=== PATIENT | male | born 1950 | race Caucasian/White ===

== ENCOUNTER → 2017-01-09 | Outpatient (CLI) | payer BC ==
[2017-01-09 17:54] LABS: ALT/SGPT 33 U/L (12-78); AST/SGOT 16 U/L (15-37); BLOOD UREA NITROGEN 17 mg/dl (7-18); CALCIUM 8.8 mg/dl (8.5-10.1); CARBON DIOXIDE 25 mmol/L (21-32); CHLORIDE 108 mmol/L (98-107); CREATININE 0.88 mg/dl (0.60-1.40); GLUCOSE 90 mg/dl (70-99); POTASSIUM 4.2 mmol/L (3.5-5.1); SODIUM 141 mmol/L (136-145)
[2017-01-09 17:57] LABS: ALB/GLOB RATIO 1.1 (0.9-2); ALKALINE PHOSPHATASE 72 U/L (45-117); CHOLESTEROL/HDL RATIO 4.8
== END | disposition home or self-care (01) ==
LOC: C.LABPVFM 11:46
PROVIDERS: ATTEND Family Medicine
DX: E78.5 Hyperlipidemia, unspecified (principal)

== ENCOUNTER → 2017-06-19 | Outpatient (CLI) | payer BC ==
[2017-06-19 13:01] LABS: ALBUMIN 3.3 gm/dl (3.4-5.0); ALT/SGPT 31 U/L (12-78); BLOOD UREA NITROGEN 19 mg/dl (7-18); CALCIUM 8.4 mg/dl (8.5-10.1); CARBON DIOXIDE 28 mmol/L (21-32); CHOLESTEROL 159 mg/dl (0-200); CREATININE 0.88 mg/dl (0.60-1.40); GLUCOSE 94 mg/dl (70-99); POTASSIUM 3.4 mmol/L (3.5-5.1); SODIUM 141 mmol/L (136-145)
[2017-06-19 13:06] LABS: ALKALINE PHOSPHATASE 57 U/L (45-117); AST/SGOT 13 U/L (15-37); LDL CHOLESTEROL CALCULATED 81 mg/dl; TOTAL PROTEIN 6.2 gm/dl (6.4-8.2)
== END | disposition home or self-care (01) ==
LOC: C.LABPVFM 08:00
PROVIDERS: ATTEND Family Medicine
DX: Z00.00 Encounter for general adult medical examination without abnormal findings (principal)

== ENCOUNTER 2025-02-26 12:27 | Inpatient (IN) ==
--- NOTE | 2025-02-26 14:15 | Emergency Department Note ---
Impression & Plan AMS (altered mental status), Acute paranoia ED Provider Note HISTORY OF PRESENT ILLNESS: Patient is a 74-year-old male presenting with abnormal behavior. provides entirety of history, as patient refuses to talk to examiner. reports that the patient has been having "bizarre thoughts" for the last 2 years. She states that in the last 2 weeks the patient has significantly declined in his mental status. Reports that the patient "only paces around all day." She states that he is having visual hallucinations of the neighbor coming to their house when the neighbor does not. She is unsure if he is having auditory hallucinations and the patient will not answer questions. They were seen at the PCP today for a regular follow-up appointment and given the patient's presenting symptoms, they were referred to the emergency department. reports that "PCP sent us for an MRI of his brain." No reported physical symptoms such as chest pain, shortness of breath, nausea or vomiting. No reported headaches or changes in vision. Patient has a history of anxiety and depression is on Zoloft. reports Zoloft was started about 3 to 4 weeks ago. He was initially on 25 mg and was increased to 50 mg about 2 weeks ago. No other changes to medications. reports that the patient was unable to dress himself today. She reports "he just seems like he is comatose." She reports that the patient has intrusive thoughts that the "neighbors are talking about us and upset with us." reports that last night the patient was "telling me goodbye because he states that he would not be here in the morning." He had recurrent intrusive thoughts that someone was going to break into the house to kill them. She states that the patient thinks that "the klan is going to kill me." denies any particular triggers starting 2 to 3 weeks ago. She reports that patient follows with a mental health provider and was scheduled to see them on Monday, but given patient's intrusive thoughts and bizarre behaviors, she has significant concern about his safety at home. Patient denies any suicidal ideation. He has never been admitted to an inpatient psychiatric facility in the past. Reportedly does have access to guns at the home. ROS: as above PHYSICAL EXAM: Constitutional: Patient appears in no acute distress. HENT: Head: Normocephalic and atraumatic. Eyes: EOMI, PERRL Mouth/Throat: Mucous membranes moist. Neck: Trachea midline. Neck supple. Cardiovascular: RRR, No murmurs, rubs or gallops. Intact distal pulses. Pulmonary/Chest: No respiratory distress. Breath sounds clear and equal bilaterally. No wheezes or rales. Abdominal: Abdomen soft, no tenderness, rebound or guarding. Musculoskeletal: No edema, tenderness or deformity noted. Skin: Warm and dry. No rash, erythema, pallor or cyanosis Psychiatric: Appropriate mood and affect for situation. Neurological: Alert. CN II-XII grossly intact, moving all extremities equally and fully. MDM: - Vitals signs stable. - History obtained via patient's , given patient will not answer any question. History as above. - Chronic conditions affecting care: anxiety/depression; HTN; HLD; LBBB - Differential diagnoses include, but are not limited to: Intracranial hemorrhage; CVA; intracranial mass; UTI; electrolyte abnormality; medication side effect; psychosis - External medical records reviewed. Primary care visit note from earlier today was reviewed. Patient was referred to the emergency department due to "having thoughts of hurting himself." - EKG image interpreted by myself showed normal sinus rhythm. Rate 67 bpm. QT 474. No acute ischemic changes. Noted to have left bundle branch block, which has been noted on previous EKGs. - Laboratory workup interpreted by myself showed normal WBC; normal PT/INR; stable electrolytes; normal troponin; negative alcohol; normal TSH - UA negative for infection. Noted to have significant amounts of ketones but no glucosuria - CT head wo contrast negative for acute pathology - UDS negative - Unclear medical etiology for patient's symptoms at this time. However, patient has had a significant decline in the last 14 days and expresses concern about his safety at home. Will admit to the hospital service for further medical evaluation and potential psychiatric consultation in the inpatient setting. - Discussion was had with case making machine operator about patient's case and need for admission - Hospitalist, Dr. Yoder, consulted for admission - Patient admitted to [facility] hospitalist service for further evaluation and management. ASSESSMENT AND PLAN: Diagnosis: Altered mental status; acute paranoia Plan: Admit Past Med/Surg History Problem List (Updated 02/26/25 @ 17:24 by Clementine Long MD) Acute paranoia (Acute) AMS (altered mental status) (Acute) Weight loss Bizarre thoughts Dyspnea on exertion LBBB (left bundle branch block) BELLO (obstructive sleep apnea) Insomnia Fatigue Headache Depression BPH (benign prostatic hyperplasia) (Chronic) Lichen simplex chronicus Hypertension (Chronic) Hyperlipidemia (Chronic) GERD without esophagitis (Chronic) Eczema BPPV (benign paroxysmal positional vertigo) Medical History Left flank pain Atypical chest pain Chest pain Nasal sinus congestion Ventral hernia Hx of colonic polyps Stenosis, cervical spine Eczema Seasonal allergies History of COVID-19 (2021) Arrhythmia BELLO (obstructive sleep apnea) Tinnitus Diverticulosis of colon Surgical History Hx of colonoscopy with polypectomy History of tonsillectomy History of hernia surgery Family History Father Lung cancer Hypertension Heart disease Diabetes Mother Dementia Breast cancer Lung cancer Grandmother Heart disease Grandfather Colorectal cancer Brother Prostate cancer Denies family history of Ovarian cancer Clotting disorder Myocardial infarction Social History Smoking Status: Never smoker Second Hand Exposure: Yes (As a child. ); Do You Dip or Chew Tobacco: No; Hx Alcohol Use: Yes Alcohol type: beer and hard liquor Alcohol Intake Frequency: 2-4 x/Month Hx Substance Use: No Preferred Language: Slovak Communication Ability: Effective Visual Impairment: Limited Hearing Ability: Normal Heel Scourer Required: No Beliefs That Will Affect Care: None marital status: Current Living Situation: Spouse current occupational status: retired How many Children do You have: 2 Feels Safe at Home: Yes Childhood Exposure to Second-Hand Smoke: Yes (Parents smoked. ) Diet: regular caffeine: Yes (coffee) during the past year weight has: remained stable Dental Care, Regularly: Yes Physical Activity Frequency: 3-4 Times per Week Seatbelt Use: always Sunscreen Use: Yes Do you think of yourself as: straight/heterosexual Sexual Activity: has been sexually active within the last 12 months Gender Identity: Male Assistive Devices: CPAP and Glasses Allergies Allergies Allergy/AdvReac Type Severity Reaction Status Date / Time No Known Drug Allergies Allergy Verified 02/26/25 08:53 Home Meds Home Medications Medication Instructions Recorded Confirmed sertraline 50 mg tablet (Zoloft) 50 mg PO DAILY 02/26/25 02/26/25 Previous Rx's Medication Instructions Recorded Auto Titrating CPAP See Rx Instructions .Route 03/11/21 .COMPLEX #1 ea fluticasone propionate 50 2 spray intranasal DAILY #16 grams 02/09/24 mcg/actuation nasal spray,suspension losartan 100 mg tablet 100 mg PO QAM #90 tabs 02/09/24 triamcinolone acetonide 0.1 % 1 applic topical TID PRN itching 02/09/24 topical ointment #30 grams atorvastatin 20 mg tablet 20 mg PO QPM #90 tabs 12/12/24 metoprolol succinate 50 mg 50 mg PO QAM #90 tabs 12/12/24 tablet,extended release 24 hr omeprazole 20 mg capsule,delayed 20 mg PO DAILY PRN gerd #90 caps 12/12/24 release tamsulosin 0.4 mg capsule 0.4 mg PO BID #180 caps 12/12/24 Results & Data (ED) Vital Signs Vital Signs - 24 hr 02/26/25 12:34 02/26/25 15:16 Temperature 36.4 C L Temperature Source Temporal Artery Scan Pulse Rate 64 Pulse Rate [Finger] 59 L Respiratory Rate 20 18 Respiratory Effort / Characteristics Non-Labored Spontaneous Respiratory Depth Normal Blood Pressure 117/62 Blood Pressure [Right Arm] 154/76 H Blood Pressure Mean 80 Blood Pressure Mean [Right Arm] 102 Pulse Oximetry 97 97 Oxygen Delivery Method Room Air Room Air Sepsis Recent Fever Within 48 Hours No Sepsis New/Unexplained Change in Mental Status N/A Sepsis Action Taken by Nursing No Action Required Laboratory Data 02/26/25 13:46 02/26/25 13:46 Lab Results 02/26/25 02/26/25 02/26/25 Range/Units 13:46 14:02 14:33 WBC 7.39 (4.8-10.8) K/ul RBC 4.15 L (4.70-6.10) M/uL Hgb 13.6 L (14.0-18.0) g/dL POC Hgb 12.6 L (14.0-18.0) g/dl Hct 38.0 L (42.0-52.0) % POC Hct 37 L (42-52) % MCV 91.6 (80.0-100.0) fL MCH 32.8 (25.0-34.0) pg MCHC 35.8 (32.0-36.0) g/dL RDW Std Deviation 42.7 (36.4-46.3) fL RDW Coeff of Esther 12.7 (11.5-14.5) % Plt Count 246 (130-400) K/uL MPV 9.9 (9.4-12.4) fL Immature Gran % (Auto) 0.4 % Neut % (Auto) 75.5 % Lymph % (Auto) 14.6 % Leslie % (Auto) 8.5 % Eos % (Auto) 0.5 % Baso % (Auto) 0.5 % Neut # (Auto) 5.57 (1.40-6.50) K/uL Lymph # (Auto) 1.08 L (1.20-3.40) K/uL Leslie # (Auto) 0.63 H (0.11-0.59) K/uL Eos # (Auto) 0.04 (0.00-0.50) K/uL Baso # (Auto) 0.04 (0.00-0.20) K/uL Immature Gran # (Auto) 0.03 (0.01-0.20) K/uL PT Cancelled 10.9 INR Cancelled 1.0 APTT Cancelled 27 PTT Ratio Cancelled 1.0 POC Sodium 143 (135-144) mmol/L Sodium 143 (136-145) mmol/L POC Potassium 3.9 (3.3-5.0) mmol/L Potassium 3.9 (3.5-5.1) mmol/L POC Chloride 105 (101-112) mmol/L Chloride 107 (98-107) mmol/L Carbon Dioxide 28 (21-32) mmol/L POC Total CO2 26 (24-31) mmol/L Anion Gap 8 (3-11) POC Anion Gap 17.0 (16-25) mmol/L POC BUN 29 H (7-18) mg/dl BUN 28 H (6-23) mg/dl Creatinine 0.71 (0.6-1.4) mg/dl POC Creatinine 0.8 (0.6-1.3) mg/dl Est Cr Clr Drug Dosing 94.0 ml/min eGFR 97.48 BUN/Creatinine Ratio 39.4 H (10-20) Glucose 125 H (70-99(Fasting)) mg/dl POC Glucose (other) 121 H (70-99) mg/dl Calcium 8.8 (8.6-10.3) mg/dl POC Ioniz Calcium Stephon 1.14 (1.12-1.32) mmol/l Total Bilirubin 0.7 (0.2-1.0) mg/dl AST 29 (13-39) U/L ALT 32 (7-52) U/L Alkaline Phosphatase 53 (34-104) U/L Troponin I High Sens 9.6 (0-20) pg/ml Total Protein 5.9 L (6.0-8.3) gm/dl Albumin 3.5 (3.4-5.0) gm/dl Globulin 2.4 L (2.5-4.0) gm/dl Albumin/Globulin Ratio 1.5 (0.9-2) TSH 1.231 (0.300-4.500) uIu/ml Urine Color Urine Appearance (Clear) Urine pH (4.5-7.5) Ur Specific Elton (1.000-1.030) Urine Protein (Negative) Urine Glucose (UA) (Negative) Urine Ketones (Negative) Urine Blood (Negative) Urine Nitrite (Negative) Urine Bilirubin (Negative) Urine Urobilinogen (Negative) Ur Leukocyte Esterase (Negative) Urine WBC (Auto) (0-5) /hpf Urine RBC (Auto) (0-2) /hpf U Hyaline Cast (Auto) (0-2) /lpf U Epithel Cells (Auto) (0-2) /hpf Urine Bacteria (Auto) (None Seen) Urine Comment Urine Opiates Screen (Neg) Ur Methadone, Qual (Neg) Urine Fentanyl Screen (Neg) Urine Barbiturates (Neg) Ur Phencyclidine (PCP) (Neg) U Amphetamin/Meth Scrn (Neg) MDMA (Ecstasy) Screen (Neg) U Benzodiazepines Scrn (Neg) Ur Cocaine Metabolite (Neg) U Marijuana (THC) Screen (Neg) Ethyl Alcohol mg/dL < 10.0 (<10.0) mg/dl 02/26/25 Range/Units 15:20 WBC (4.8-10.8) K/ul RBC (4.70-6.10) M/uL Hgb (14.0-18.0) g/dL POC Hgb (14.0-18.0) g/dl Hct (42.0-52.0) % POC Hct (42-52) % MCV (80.0-100.0) fL MCH (25.0-34.0) pg MCHC (32.0-36.0) g/dL RDW Std Deviation (36.4-46.3) fL RDW Coeff of Esther (11.5-14.5) % Plt Count (130-400) K/uL MPV (9.4-12.4) fL Immature Gran % (Auto) % Neut % (Auto) % Lymph % (Auto) % Leslie % (Auto) % Eos % (Auto) % Baso % (Auto) % Neut # (Auto) (1.40-6.50) K/uL Lymph # (Auto) (1.20-3.40) K/uL Leslie # (Auto) (0.11-0.59) K/uL Eos # (Auto) (0.00-0.50) K/uL Baso # (Auto) (0.00-0.20) K/uL Immature Gran # (Auto) (0.01-0.20) K/uL PT INR APTT PTT Ratio POC Sodium (135-144) mmol/L Sodium (136-145) mmol/L POC Potassium (3.3-5.0) mmol/L Potassium (3.5-5.1) mmol/L POC Chloride (101-112) mmol/L Chloride (98-107) mmol/L Carbon Dioxide (21-32) mmol/L POC Total CO2 (24-31) mmol/L Anion Gap (3-11) POC Anion Gap (16-25) mmol/L POC BUN (7-18) mg/dl BUN (6-23) mg/dl Creatinine (0.6-1.4) mg/dl POC Creatinine (0.6-1.3) mg/dl Est Cr Clr Drug Dosing ml/min eGFR BUN/Creatinine Ratio (10-20) Glucose (70-99(Fasting)) mg/dl POC Glucose (other) (70-99) mg/dl Calcium (8.6-10.3) mg/dl POC Ioniz Calcium Stephon (1.12-1.32) mmol/l Total Bilirubin (0.2-1.0) mg/dl AST (13-39) U/L ALT (7-52) U/L Alkaline Phosphatase (34-104) U/L Troponin I High Sens (0-20) pg/ml Total Protein (6.0-8.3) gm/dl Albumin (3.4-5.0) gm/dl Globulin (2.5-4.0) gm/dl Albumin/Globulin Ratio (0.9-2) TSH (0.300-4.500) uIu/ml Urine Color Yellow Urine Appearance Clear (Clear) Urine pH 6.0 (4.5-7.5) Ur Specific Elton 1.029 (1.000-1.030) Urine Protein Trace H (Negative) Urine Glucose (UA) Negative (Negative) Urine Ketones 3+ H (Negative) Urine Blood Negative (Negative) Urine Nitrite Negative (Negative) Urine Bilirubin Negative (Negative) Urine Urobilinogen Negative (Negative) Ur Leukocyte Esterase Negative (Negative) Urine WBC (Auto) 0-5 (0-5) /hpf Urine RBC (Auto) 0-2 (0-2) /hpf U Hyaline Cast (Auto) 0-2 (0-2) /lpf U Epithel Cells (Auto) 0-2 (0-2) /hpf Urine Bacteria (Auto) None Seen (None Seen) Urine Comment Urine Opiates Screen Neg (Neg) Ur Methadone, Qual Neg (Neg) Urine Fentanyl Screen Neg (Neg) Urine Barbiturates Neg (Neg) Ur Phencyclidine (PCP) Neg (Neg) U Amphetamin/Meth Scrn Neg (Neg) MDMA (Ecstasy) Screen Neg (Neg) U Benzodiazepines Scrn Neg (Neg) Ur Cocaine Metabolite Neg (Neg) U Marijuana (THC) Screen Neg (Neg) Ethyl Alcohol mg/dL (<10.0) mg/dl Imaging Data Radiologist's Impression: Head CT 02/26/25 13:57 CT SCAN OF THE BRAIN WITHOUT IV CONTRAST CLINICAL HISTORY: Change in mental status. Paranoia. Delusions. COMPARISON STUDY: MRI of the brain dated 01/01/2019. TECHNIQUE: Unenhanced CT scan of the brain is performed from the vertex to the skull base. Images are reviewed in the axial, sagittal, coronal planes. A dose lowering technique was utilized adhering to the principles of ALARA. CT DOSE: 663.26 mGy.cm FINDINGS: Brain parenchyma: There is age-related involutional change noting minimal microangiopathic disease. There is no hemorrhage, mass effect, or evidence of acute territorial ischemia by CT criteria. [place]-white matter differentiation is preserved. No extra-axial fluid collection is seen. Ventricles, sulci, cisterns: Prominent secondary to involutional change. Intracranial vasculature: There is atherosclerotic calcification of the cavernous carotid arteries. Calvarium: Unremarkable. Sinuses and mastoids: There is mild mucosal thickening within the left maxillary antrum. Trace mucosal thickening is seen in the left frontal sinus and the ethmoid sinuses. The mastoid air cells are well pneumatized. Orbits: The bony orbits are grossly intact. IMPRESSION: There is no hemorrhage, mass effect, or evidence of acute territorial ischemia by CT criteria. ACT 112: Negative or not required by law. Electronically signed by: Reece Basilio M.D. 02/26/2025 2:25 PM Discharge Plan Visit Data Chief Complaint: Altered Mental Status Stated Complaint: MH EVAL AND DOC WANTS AND MRI ED Provider: Clementine Long Discharge Problem: AMS (altered mental status), Acute paranoia Patient Disposition: Admitted As Inpatient Condition: Fair Forms Stand Alone Forms: My [facility] Prescriptions Prescriptions: No Action metoprolol succinate 50 mg tablet extended release 24 hr 50 mg PO QAM Qty: 90 3RF atorvastatin 20 mg tablet 20 mg PO QPM Qty: 90 3RF tamsulosin 0.4 mg capsule 0.4 mg PO BID Qty: 180 3RF omeprazole 20 mg capsule,delayed release(DR/EC) 20 mg PO DAILY PRN (Reason: gerd) Qty: 90 3RF Auto Titrating CPAP Misc See Rx Instructions .ROUTE .COMPLEX Qty: 1 0RF Rx Instructions: 5 to 15 cm of water, mask fit patient comfort, heated humidification, compliance download capabilities, DME of patient choice; sertraline [Zoloft] 50 mg tablet 50 mg PO DAILY fluticasone propionate 50 mcg/actuation spray,suspension 2 spray intranasal DAILY Qty: 16 11RF losartan 100 mg tablet 100 mg PO QAM Qty: 90 3RF triamcinolone acetonide 0.1 % ointment 1 applic topical TID PRN (Reason: itching) Qty: 30 5RF Referrals Referrals: Eliseo Ordoñez DO [Primary Care Provider] -
[2025-02-26 14:17] LABS: Hematocrit (blood only) 38.0 % (42.0-52.0); Hemoglobin 13.6 g/dL (14.0-18.0); Immature Granulocytes # (auto) 0.03 K/uL (0.01-0.20); Immature Granulocytes % (auto) 0.4 %; Mean Corpuscular Hemoglobin 32.8 pg (25.0-34.0); Mean Corpuscular Volume 91.6 fL (80.0-100.0); Platelet Count 246 K/uL (130-400); RDW Standard Deviation 42.7 fL (36.4-46.3); Red Blood Count 4.15 M/uL (4.70-6.10); White Blood Count 7.39 K/ul (4.8-10.8)
[2025-02-26 14:22] LABS: Albumin Level 3.5 gm/dl (3.4-5.0); Anion Gap 8.0 (3-11); Bilirubin,Total 0.7 mg/dl (0.2-1.0); Calcium 8.8 mg/dl (8.6-10.3); Carbon Dioxide 28.0 mmol/L (21-32); Chloride 107.0 mmol/L (98-107); Potassium 3.9 mmol/L (3.5-5.1); Sodium 143.0 mmol/L (136-145)
--- NOTE | 2025-02-26 14:27 | CT Scan Report ---
CT SCAN OF THE BRAIN WITHOUT IV CONTRAST CLINICAL HISTORY: Change in mental status. Paranoia. Delusions. COMPARISON STUDY: MRI of the brain dated 01/01/2019. TECHNIQUE: Unenhanced CT scan of the brain is performed from the vertex to the skull base. Images are reviewed in the axial, sagittal, coronal planes. A dose lowering technique was utilized adhering to the principles of ALARA. CT DOSE: 663.26 mGy.cm FINDINGS: Brain parenchyma: There is age-related involutional change noting minimal microangiopathic disease. T here is no hemorrhage, mass effect, or evidence of acute territorial ischemia by CT criteria. [place]-wh ite matter differentiation is preserved. No extra-axial fluid collection is seen. Ventricles, sulci, cisterns: Prominent secondary to involutional change. Intracranial vasculature: There is atherosclerotic calcification of the cavernous carotid arteries. Calvarium: Unremarkable. Sinuses and mastoids: There is mild mucosal thickening within the left maxillary antrum. Trace mucosa l thickening is seen in the left frontal sinus and the ethmoid sinuses. The mastoid air cells are wel l pneumatized. Orbits: The bony orbits are grossly intact. IMPRESSION: There is no hemorrhage, mass effect, or evidence of acute territorial ischemia by CT cynthia [place]. ACT 112: Negative or not required by law. Electronically signed by: Reece Basilio M.D. 02/26/2025 2:25 PM
[2025-02-26 14:28] LABS: Alanine Aminotransferase 32.0 U/L (7-52); Albumin Globulin Ratio 1.5 (0.9-2); Alkaline Phosphatase 53.0 U/L (34-104); Blood Urea Nitrogen 28.0 mg/dl (6-23); Creatinine Clr Calc Pharmacy 94.0 ml/min; Globulin 2.4 gm/dl (2.5-4.0); Glucose 125.0 mg/dl (70-99(Fasting)); Total Protein 5.9 gm/dl (6.0-8.3)
[2025-02-26 14:56] LABS: Thyroid Stimulating Hormone 1.231 uIu/ml (0.300-4.500)
[2025-02-26 15:18] LABS: INR 1.0 (0.9-1.1); Partial Thromboplastin Time 27 Seconds (21-31); Prothrombin Time 10.9 Seconds (9.0-12.0)
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
[2025-02-26 16:06] LABS: Appearance Urine Clear (Clear); Bacteria Urine Automated None Seen (None Seen); Cast Urine Automated 0-2 /lpf (0-2); Epithelial Cell Urine Auto 0-2 /hpf (0-2); Glucose Urine UA Negative (Negative); RBC Urine Automated 0-2 /hpf (0-2); WBC Urine Automated 0-5 /hpf (0-5)
[2025-02-26 16:58] LABS: Amphetamines+Metham, Urine Neg (Neg); MDMA (Ecstacy), Urine Neg (Neg); Marijuana, Urine Neg (Neg)
--- NOTE | 2025-02-26 17:32 | XRay Report ---
INDICATION: Abdominal pain TECHNIQUE: Portable supine view radiograph of the abdomen was obtained. COMPARISON: CT abdomen and pelvis February 08, 2025 FINDINGS: The bowel gas pattern is nonobstructive. Moderate quantity of desiccated stool is seen over the colon and over the rectal vault. Evaluation for free air is limited due to supine technique. Organ silhouettes are normal in shape and contour. There is no gross mass effect. IMPRESSION: Moderate quantity of desiccated stool is seen over the colon and over the rectal vault. Electronically signed by Mihir Gracia 02-26-2025 5:27 PM
[2025-02-26] MEDS ORDERED: NON-FORMULARY MEDICATION (Auto Titrating Cpap misc) SCH (21:49)
[2025-02-26] MEDS: TAMSULOSIN HCL 0.4 MG CAP PO SCH (23:04)
[2025-02-26] MEDS: ATORVASTATIN 20 MG TAB PO SCH (23:05)
[2025-02-27] MEDS: MELATONIN 3 MG TAB PO PRN (00:19)
--- NOTE | 2025-02-27 05:56 | Electrocardiogram Report ---
Test Reason : Blood Pressure : */* mmHG Vent. Rate : 67 BPM Atrial Rate : 67 BPM P-R Int : 142 ms QRS Dur : 154 ms QT Int : 474 ms P-R-T Axes : 73 12 104 degrees QTcB Int : 500 ms Normal sinus rhythm Left bundle branch block Abnormal ECG No previous ECGs available Confirmed by Munir Fox ([id number]) on 02/27/2025 5:55:47 AM Referred By: Confirmed By: Munir Fox
--- NOTE | 2025-02-27 07:18 | Hospitalist Progress Note ---
Date of Service February 27, 2025 Assessment & Plan (1) Hallucinations in several modalities at once: (2) Acute paranoia: (3) Homicidal ideation: (4) Suicidal ideation: (5) BPH with obstruction/lower urinary tract symptoms: Plan In summary this is a 74-year-old male who presents with acutely worsened severe paranoia associated with hallucinations, homicidal and suicidal ideation. #Severe paranoia with hallucinations // Suicidal and Homicidal ideation There is no acute medical condition that would explain the patient's worsening paranoia; the patient was recently started on Zoloft by an outpatient psychiatrist/BARREL CUTTER, which may be exacerbating patient's symptoms; nonpsychiatric causes of the patient's worsened condition have been thoroughly ruled out by the emergency department provider's evaluation as well as my additional assessment; psychiatry has been consulted for recommendations Psychiatry consulted; recommend MRI brain without contrast, serum studies for heavy metal toxicity, and olanzapine as detailed below - Start olanzapine 5 mg p.o. at bedtime - Start olanzapine 2.5 mg p.o. every 8 hours as needed for breakthrough agitation, paranoia Discontinue Zoloft #BPH with urinary retention Established condition in the outpatient setting; he has been continued on tamsulosin during this hospitalization, overnight requiring straight catheterization; no additional intervention at this time The remainder the patient's chronic medical conditions are stable and do not require adjustment to their outpatient regimen at this time Admission and Anticipated Discharge Date Admission Date: February 26, 2025 Subjective Mr. Cabrera is a 74-year-old male whose active medical conditions include hyperlipidemia, benign prostatic hyperplasia with lower urinary tract symptoms, obstructive sleep apnea requiring CPAP therapy among other chronic medical conditions who presents to the [facility] due to acutely worsening paranoia with associated homicidal and suicidal ideation. Overnight the patient had multiple episodes of restlessness, attempted to leave the facility at one point. They were able to be redirected by the psychiatry liaison without pharmacologic intervention. The patient was further found to have significant urinary retention, greater than 600 mL, unable to spontaneously void; required a one time straight catheterization. Review of Systems Review of Systems: Review of cardiovascular, pulmonary, gastrointestinal, genitourinary, neurologic, psychiatric systems was unremarkable except for pertinent positive and negative findings detailed above Physical Exam Physical Exam: General: Adult male in no acute distress Vital Signs: Reviewed HEENT: Moist mucous membranes Pulmonary: Symmetric chest wall excursion without restriction Cardiovascular: Regular rate and rhythm without murmurs, rubs, or gallops; S1 and S2 normal; right radial pulse 2+; no notable lower extremity edema Psychiatric: Alert and oriented to self, place, time; continues to experience visual hallucinations; condition unchanged from admission Results & Data Results & Data Vital Signs (Past 12 Hours) Vital Signs Temp Pulse Resp BP Pulse Ox O2 Del Method 02/26/25 21:50 36.6 C 65 16 152/75 H 96 Room Air 02/26/25 21:45 Room Air 02/26/25 21:45 36.6 C 65 152/75 H Room Air 02/26/25 21:23 36.8 C 56 L 17 141/68 H 97 Room Air PG Care Time/CCT Total # of Minutes Spent Total Time Spent with Patient: Total time spent is greater than 50% in coordination of care (as documented) at patient's floor/unit and/or counseling patient: Coding Level of Care Code 16614 SUB INP/OBS CARE 2/35MIN Diagnoses Hallucinations in several modalities at once R44.2 Acute paranoia F22 Homicidal ideation R45.850 Suicidal ideation R45.851 BPH with obstruction/lower urinary tract symptoms N40.1; N13.8
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
[2025-02-27] MEDS: LOSARTAN POTASSIUM 50 MG TAB PO SCH (10:04)
[2025-02-27] MEDS: METOPROLOL SUCC 50MG EXT REL TAB PO SCH (10:05)
[2025-02-27] MEDS: OLANZAPINE 2.5 MG TAB PO PRN (12:34)
--- NOTE | 2025-02-27 13:50 | Magnetic Resonance Report ---
MRI OF THE BRAIN WITHOUT IV CONTRAST CLINICAL HISTORY: Altered mental status. Hallucinations. COMPARISON STUDY: MRI of the brain January 01, 2019. Head CT February 26, 2025. TECHNIQUE: MRI of the brain was performed utilizing various T1 and T2-weighted sequences in the axial , sagittal, and coronal planes. IV contrast was not administered for this examination. FINDINGS: Brain parenchyma: There are no foci of restricted diffusion to suggest acute infarct. No acute intrac ranial hemorrhage, midline shift or mass effect is present. No intracranial masses are identified on unenhanced exam. There is no significant parenchymal signal abnormality. Ventricles, sulci, and cisterns: There is no hydrocephalus. The basal cisterns are patent. There are no extra-axial collections. Pituitary and sella: Unremarkable. Intracranial vasculature: Flow-voids for the major intracranial vessels are present. Orbits: Orbital contents are unremarkable. Sinuses and mastoids: There is no evidence for sinusitis. Trace fluid within the right mastoid air ce lls is present. Calvarium: No calvarial lesions are identified. Cervical cord: Partially visualized cervical spinal cord is normal in morphology and signal intensity . IMPRESSION: No acute intracranial findings. Unremarkable unenhanced MRI of the brain. ACT 112: Negative or not required by law. Electronically signed by: Scott Amaral M.D. 02/27/2025 1:49 PM
--- NOTE | 2025-02-28 07:47 | Hospitalist Progress Note ---
Date of Service February 28, 2025 Assessment & Plan (1) Hallucinations in several modalities at once: (2) Acute paranoia: (3) Homicidal ideation: (4) Suicidal ideation: (5) BPH with obstruction/lower urinary tract symptoms: Plan In summary this is a 74-year-old male who presents with acutely worsened severe paranoia associated with hallucinations, homicidal and suicidal ideation. #Severe paranoia with hallucinations // Suicidal and Homicidal ideation There is no acute medical condition that would explain the patient's worsening paranoia; the patient was recently started on Zoloft by an outpatient psychiatrist/MANAGER VISUAL, which may be exacerbating patient's symptoms; nonpsychiatric causes of the patient's worsened condition have been thoroughly ruled out by the emergency department provider's evaluation as well as my additional assessment; psychiatry has been consulted for recommendations Psychiatry consulted; serum studies for heavy metal toxicity pending - MRI brain without contrast was without evidence of pathology - Continue olanzapine 5 mg p.o. at bedtime - Continue olanzapine 2.5 mg p.o. every 8 hours as needed for breakthrough agitation, paranoia Discontinue Zoloft #BPH with urinary retention Established condition in the outpatient setting; he has been continued on tamsulosin during this hospitalization and continues to have retention - Place Torres catheter The remainder the patient's chronic medical conditions are stable and do not require adjustment to their outpatient regimen at this time Admission and Anticipated Discharge Date Admission Date: February 26, 2025 Subjective Mr. Cabrera is a 74-year-old male whose active medical conditions include hyperlipidemia, benign prostatic hyperplasia with lower urinary tract symptoms, obstructive sleep apnea requiring CPAP therapy among other chronic medical conditions who presents to the [facility] due to acutely worsening paranoia with associated homicidal and suicidal ideation. Overnight the patient had multiple episodes of restlessness, again attempted to elope requiring four-point restraints and frequent reorientation by staff. Review of Systems Review of Systems: Review of cardiovascular, pulmonary, gastrointestinal, genitourinary, neurologic, psychiatric systems was unremarkable except for pertinent positive and negative findings detailed above Physical Exam Physical Exam: General: Adult male in no acute distress Vital Signs: Reviewed HEENT: Moist mucous membranes Pulmonary: Symmetric chest wall excursion without restriction Cardiovascular: Regular rate and rhythm with right radial pulse 2+; no notable lower extremity edema Genitourinary: Torres catheter in place with approximately 150 mL of pale yellow urine without sediment Psychiatric: Alert and oriented to self, place, time; continues to experience visual hallucinations; condition unchanged from admission Results & Data Results & Data Vital Signs (Past 12 Hours) Vital Signs Temp Pulse Resp BP Pulse Ox O2 Del Method 02/27/25 23:48 36.4 C L 56 L 18 113/61 96 Room Air PG Care Time/CCT Total # of Minutes Spent Total Time Spent with Patient: Total time spent is greater than 50% in coordination of care (as documented) at patient's floor/unit and/or counseling patient: Coding Level of Care Code 70808 SUB INP/OBS CARE 2/35MIN Diagnoses Hallucinations in several modalities at once R44.2 Acute paranoia F22 Homicidal ideation R45.850 Suicidal ideation R45.851 BPH with obstruction/lower urinary tract symptoms N40.1; N13.8
[2025-02-28] MEDS: ENOXAPARIN INJ 40 MG/0.4 ML SYR SQ SCH (08:05)
--- NOTE | 2025-02-28 12:44 | Progress Note ---
Date of Service February 28, 2025 Assessment & Plan (1) Hallucinations in several modalities at once: Plan 02/28/25 Ativan 1mg IV (challenge test fro catatonia during staring event) conducted at 12:50pm. Result negative. Patient deeply asleep after Ativan. O2 =94 on room air Continue to search for neurological or other medical conditions for patient's presentation (atypical onset of psychosis) Hold Olanzapine 5mg qhs Continue Olanzapine 2.5mg PRN 02/27/25 Recommend olanzapine 5 mg p.o. nightly and 2.5 mg p.o. 3 times daily as needed for agitation. Avoid use of Haldol and other strong D 2 blockers until Lewy body dementia is ruled out due to concerns about higher morbidity and mortality. Avoid sedating medications like benzodiazepines and medications with high anticholinergic effect like hydroxyzine. Agree with discontinuation of Zoloft. Admission and Anticipated Discharge Date Admission Date: February 28, 2025 Subjective Mr. Cabrera is a 74-year-old male whose active medical conditions include hyperlipidemia, benign prostatic hyperplasia with lower urinary tract symptoms, obstructive sleep apnea requiring CPAP therapy among other chronic medical conditions who presents to the [facility] due to acutely worsening paranoia with associated homicidal and suicidal ideation. Overnight the patient had multiple episodes of restlessness, again attempted to elope requiring four-point restraints and frequent reorientation by staff. Today around 12 noon nurses were assisting and while walking to the bathroom nurses n oticed he was suddenly staring, not taking and unable to move. I walked into the room as the even was unfolding and order Ativan 1 mg IV to test for catatonia. 30 mins late, patient was fast asleep. Review of Systems Genitourinary: + urinary hesitancy, + post-void dribbli ng and + problem reported Integumentary: + lesions (Atypical mole detected in 201 and follow-up conducted in 2020, 2022, 2023 unknown biopsy results) Psychiatric: + behavioral changes, + depression, + ab normal sleep pattern, + change in appetite, + irritability, + anxiety, + panic attacks, + difficulty concentrating, + confusion, + paranoia, + hallucinations, + auditory sheldon lucinations and + visual hallucinations Results & Data Vital Signs (Past 12 Hours) Vital Signs Pulse Resp BP Pulse Ox O2 Del Method 02/28/25 07:45 91 H 16 149/72 H 98 Room Air
[2025-02-28] MEDS: LORazepam Inj 1 MG in SYRINGE 0.5 ML IV STA (12:50)
--- NOTE | 2025-03-01 07:42 | Hospitalist Progress Note ---
Date of Service March 01, 2025 Assessment & Plan (1) Hallucinations in several modalities at once: (2) Acute paranoia: (3) Homicidal ideation: (4) Suicidal ideation: (5) BPH with obstruction/lower urinary tract symptoms: Plan In summary this is a 74-year-old male who presents with acutely worsened severe paranoia associated with hallucinations, homicidal and suicidal ideation. #Severe paranoia with hallucinations // Suicidal and Homicidal ideation There is no acute medical condition that would explain the patient's worsening paranoia; the patient was recently started on Zoloft by an outpatient psychiatrist/INSTRUCTIONAL MATERIALS DIRECTOR, which may be exacerbating patient's symptoms; nonpsychiatric causes of the patient's worsened condition have been thoroughly ruled out by the emergency department provider's evaluation as well as my additional assessment; psychiatry has been consulted for recommendations Psychiatry consulted; serum studies for heavy metal toxicity pending - MRI brain without contrast was without evidence of pathology - Hold olanzapine 5 mg p.o. at bedtime, per psychiatry recommendation - Continue olanzapine 2.5 mg p.o. every 8 hours as needed for breakthrough agitation, paranoia Discontinue Zoloft #BPH with urinary retention Established condition in the outpatient setting; he has been continued on tamsulosin during this hospitalization and continues to have retention - Maintain Torres catheter; anticipate possible void trial 03/02 or #Slow transit constipation Without bowel movement since 02/26; start miralax, one time dose of bisacodyl p.o. now with nightly dose scheduled; if unable to move bowels by late afternoon 03/01, will consider enema if patient is agreeable The remainder the patient's chronic medical conditions are stable and do not require adjustment to their outpatient regimen at this time Admission and Anticipated Discharge Date Admission Date: February 28, 2025 Subjective Mr. Cabrera is a 74-year-old male whose active medical conditions include hyperlipidemia, benign prostatic hyperplasia with lower urinary tract symptoms, obstructive sleep apnea requiring CPAP therapy among other chronic medical conditions who presents to the [facility] due to acutely worsening paranoia with associated homicidal and suicidal ideation. No acute overnight events Review of Systems Review of Systems: Review of cardiovascular, pulmonary, gastrointestinal, genitourinary, neurologic, psychiatric systems was unremarkable except for pertinent positive and negative findings detailed above Physical Exam Physical Exam: General: Adult male in no acute distress Vital Signs: Reviewed HEENT: Moist mucous membranes Pulmonary: Symmetric chest wall excursion without restriction Cardiovascular: Regular rate and rhythm with right radial pulse 2+; no notable lower extremity edema Genitourinary: Torres catheter in place with approximately 100 mL of pale yellow urine without sediment Psychiatric: Alert and oriented to self, place, time; continues to experience visual hallucinations; condition unchanged from admission Results & Data Results & Data Vital Signs (Past 12 Hours) Vital Signs Temp Pulse Resp BP Pulse Ox O2 Del Method 03/01/25 07:28 36.7 C 67 16 134/72 96 Room Air 02/28/25 20:20 Room Air PG Care Time/CCT Total # of Minutes Spent Total Time Spent with Patient: Total time spent is greater than 50% in coordination of care (as documented) at patient's floor/unit and/or counseling patient: Coding Level of Care Code 75987 SUB INP/OBS CARE 2/35MIN Diagnoses Hallucinations in several modalities at once R44.2 Acute paranoia F22 Homicidal ideation R45.850 Suicidal ideation R45.851 BPH with obstruction/lower urinary tract symptoms N40.1; N13.8
[2025-03-01] MEDS: POLYETHYLENE (MIRALAX) 17 GM PACK PO SCH (08:48)
--- NOTE | 2025-03-02 07:28 | Hospitalist Progress Note ---
Date of Service March 02, 2025 Assessment & Plan (1) Hallucinations in several modalities at once: (2) Acute paranoia: (3) Homicidal ideation: (4) Suicidal ideation: (5) BPH with obstruction/lower urinary tract symptoms: Plan In summary this is a 74-year-old male who presents with acutely worsened severe paranoia associated with hallucinations, homicidal and suicidal ideation. #Severe paranoia with hallucinations // Suicidal and Homicidal ideation There is no acute medical condition that would explain the patient's worsening paranoia; the patient was recently started on Zoloft by an outpatient psychiatrist/SIGNAL WORKER, which may be exacerbating patient's symptoms; nonpsychiatric causes of the patient's worsened condition have been thoroughly ruled out by the emergency department provider's evaluation as well as my additional assessment; psychiatry has been consulted for recommendations Psychiatry consulted; serum studies for heavy metal toxicity pending - MRI brain without contrast was without evidence of pathology - Hold olanzapine 5 mg p.o. at bedtime, per psychiatry recommendation - Continue olanzapine 2.5 mg p.o. every 8 hours as needed for breakthrough agitation, paranoia Discontinue Zoloft #BPH with urinary retention Established condition in the outpatient setting; he has been continued on tamsulosin during this hospitalization and continues to have retention - Maintain Torres catheter; anticipate void trial 03/03 #Slow transit constipation Successful stool passage on 03/01 with interventions provided - Continue miralax 17 g p.o. daily - Continue bisacodyl 5 mg p.o. at bedtime The remainder the patient's chronic medical conditions are stable and do not require adjustment to their outpatient regimen at this time Admission and Anticipated Discharge Date Admission Date: February 28, 2025 Subjective Mr. Cabrera is a 74-year-old male whose active medical conditions include hyperlipidemia, benign prostatic hyperplasia with lower urinary tract symptoms, obstructive sleep apnea requiring CPAP therapy among other chronic medical conditions who presents to the [facility] due to acutely worsening paranoia with associated homicidal and suicidal ideation. No acute overnight events; successful bowel movement on 03/01 Review of Systems Review of Systems: Review of cardiovascular, pulmonary, gastrointestinal, genitourinary, neurologic, psychiatric systems was unremarkable except for pertinent positive and negative findings detailed above Physical Exam Physical Exam: General: Adult male in no acute distress Vital Signs: Reviewed HEENT: Moist mucous membranes Pulmonary: Symmetric chest wall excursion without restriction Cardiovascular: Regular rate and rhythm with right radial pulse 2+; no notable lower extremity edema Genitourinary: Torres catheter in place with approximately 125 mL of pale yellow urine without sediment Psychiatric: Alert and oriented to self, place, time; continues to experience visual hallucinations; condition unchanged from admission Results & Data Results & Data Vital Signs (Past 12 Hours) Vital Signs Temp Pulse Resp BP Pulse Ox O2 Del Method 03/01/25 20:30 Room Air 03/01/25 19:52 36.9 C 67 20 124/67 95 Room Air PG Care Time/CCT Total # of Minutes Spent Total Time Spent with Patient: Total time spent is greater than 50% in coordination of care (as documented) at patient's floor/unit and/or counseling patient: Coding Level of Care Code 02360 SUB INP/OBS CARE 2/35MIN Diagnoses Hallucinations in several modalities at once R44.2 Acute paranoia F22 Homicidal ideation R45.850 Suicidal ideation R45.851 BPH with obstruction/lower urinary tract symptoms N40.1; N13.8
--- NOTE | 2025-03-03 08:13 | Hospitalist Progress Note ---
Date of Service March 03, 2025 Assessment & Plan (1) Hallucinations in several modalities at once: (2) Acute paranoia: (3) Homicidal ideation: (4) Suicidal ideation: (5) BPH with obstruction/lower urinary tract symptoms: Plan In summary this is a 74-year-old male who presents with acutely worsened severe paranoia associated with hallucinations, homicidal and suicidal ideation. #Severe paranoia with hallucinations // Suicidal and Homicidal ideation There is no acute medical condition that would explain the patient's worsening paranoia; the patient was recently started on Zoloft by an outpatient psychiatrist/SECOND CHEF, which may have exacerbated the patient's symptoms; noted that the patient has been nonadherent with PPV therapy while sleeping, but laboratory assessment does not suggest there is significant acid/base derangement to cause his subacutely altered state Psychiatry consulted; anticipate referral to inpatient geriatric psychiatry - Heavy metal serology is unremarkable; serum copper remains pending - MRI brain without contrast was without evidence of pathology - Hold olanzapine 5 mg p.o. at bedtime, per psychiatry recommendation - Continue olanzapine 2.5 mg p.o. every 8 hours as needed for breakthrough agitation, paranoia Discontinue Zoloft #BPH with urinary retention Established condition in the outpatient setting; he has been continued on tamsulosin during this hospitalization and continues to have retention - Void trial 03/03 successful #Slow transit constipation Successful stool passage on 03/01 with interventions provided - Continue miralax 17 g p.o. daily - Continue bisacodyl 5 mg p.o. at bedtime The remainder the patient's chronic medical conditions are stable and do not require adjustment to their outpatient regimen at this time Admission and Anticipated Discharge Date Admission Date: February 28, 2025 Subjective Mr. Cabrera is a 74-year-old male whose active medical conditions include hyperlipidemia, benign prostatic hyperplasia with lower urinary tract symptoms, obstructive sleep apnea requiring CPAP therapy among other chronic medical conditions who presents to the [facility] due to acutely worsening paranoia with associated homicidal and suicidal ideation. No acute overnight events; this morning the patient expresses concern he "no longer has a bladder... it exploded"; the patient was reassured he does have an intact bladder Review of Systems Review of Systems: Review of cardiovascular, pulmonary, gastrointestinal, genitourinary, neurologic, psychiatric systems was unremarkable except for pertinent positive and negative findings detailed above Physical Exam Physical Exam: General: Adult male in no acute distress Vital Signs: Reviewed HEENT: Moist mucous membranes Pulmonary: Symmetric chest wall excursion without restriction Cardiovascular: Regular rate and rhythm with right radial pulse 2+; no notable lower extremity edema Psychiatric: Alert and oriented to self, place, time; continues to experience visual hallucinations; condition unchanged from admission Results & Data Results & Data Vital Signs (Past 12 Hours) Vital Signs Temp Pulse Resp BP Pulse Ox O2 Del Method 03/03/25 07:02 36.6 C 65 18 118/68 95 Room Air 03/02/25 21:57 36.7 C 64 16 112/65 96 Room Air 03/02/25 21:55 Room Air PG Care Time/CCT Total # of Minutes Spent Total Time Spent with Patient: Total time spent is greater than 50% in coordination of care (as documented) at patient's floor/unit and/or counseling patient: Coding Level of Care Code 68381 SUB INP/OBS CARE 2/35MIN Diagnoses Hallucinations in several modalities at once R44.2 Acute paranoia F22 Homicidal ideation R45.850 Suicidal ideation R45.851 BPH with obstruction/lower urinary tract symptoms N40.1; N13.8
[2025-03-03 09:09] LABS: Albumin Level 3.6 gm/dl (3.4-5.0); Anion Gap 6.0 (3-11); Blood Urea Nitrogen 18.0 mg/dl (6-23); Calcium 8.9 mg/dl (8.6-10.3); Carbon Dioxide 28.0 mmol/L (21-32); Chloride 105.0 mmol/L (98-107); Creatinine Clr Calc Pharmacy 87.9 ml/min; Glucose 217.0 mg/dl (70-99(Fasting)); Potassium 4.1 mmol/L (3.5-5.1); Sodium 139.0 mmol/L (136-145)
--- NOTE | 2025-03-03 14:19 | Psychiatric Progress Note ---
Date of Service March 03, 2025 Impression / Recommendations Impression Patient with late onset psychosis and no family history of mental illness. No history of substance use. 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 A: Some improvement in level of alertness and mood improving but still with periods of confusion and complex delusions (believed he was having multiple surgeries and that his bladder was removed). He responds well to reality- testing. Possible that urinary retention lead to atypical delirium that is now resolving but suspect LBD as cause. Medical workup to date has been non- revealing for any other acute medical causes to explain increased paranoia in recent weeks. Suspect likely lewy body dementia with increased psychiatric symptoms of paranoia and anxiety vs psychosis from atypical depression. Encouragingly he is willing for voluntary geriatric psychiatry hospitalization for diagnostic clarification and medication management. For now recommend starting Seroquel 50mg HS and 12.5mg BID prn for psychosis/paranoia/distressing hallucinations if repeat QTc is <500ms. Acute risk of self-harm is low given denial of SI but this could change if paranoia worsens and it does seem to wax and wane so recommend ongoing 1-on-1 for now. Note all antipsychotic medications carry black box warning for increased risk of all-cause mortality in setting of dementia. Overall, I spent a total of 60 minutes with this case including review of chart records, review of labwork, review of EKG QTc, direct evaluation of the patient at bedside, counseling the patient, discussion of the patient with the hospitalist provider, discussion with the psychiatric liason during clinical rounds, review of collateral historian information from the family and documentation in the electronic health record. (1) Unspecified psychosis not due to a substance or known physiological condition: (2) Paranoia: (3) BELLO (obstructive sleep apnea): Plan 03/01/2025: -1-on-1 prn at discretion of hospitalist, would continue for now given recent fluctuations in mood and paranoia it's possible his SI could return if he becomes distressed -COVID-test for [facility] psych bed search -Repeat EKG to check QTc, if this is <500ms then would: * Start Seroquel 50mg HS and 12.5mg BID prn for psychosis/paranoia/distress from hallucinations 02/28/25 Ativan 1mg IV (challenge test fro catatonia during staring event) conducted at 12:50pm. Result negative. Patient deeply asleep after Ativan. O2 =94 on room air Continue to search for neurological or other medical conditions for patient's presentation (atypical onset of psychosis) Hold Olanzapine 5mg qhs Continue Olanzapine 2.5mg PRN 02/27/25 Recommend olanzapine 5 mg p.o. nightly and 2.5 mg p.o. 3 times daily as needed for agitation. Avoid use of Haldol and other strong D 2 blockers until Lewy body dementia is ruled out due to concerns about higher morbidity and mortality. Avoid sedating medications like benzodiazepines and medications with high anticholinergic effect like hydroxyzine. Agree with discontinuation of Zoloft. Interval History Identifying Information STEVEN UMANZOR is a 74-year-old M who currently lives with his , has a history of hypertension, dyslipidemia, anxiety, and was admitted on 02/26/25 18:02 to the medical floor after presented to the ED with abnormal behavior and recent onset of paranoia. Chief Complaint "It's very puzzling". Subjective Subjective Patient was seen & assessed and interval progress reviewed. Renato is alert and oriented today, he is pleasant and cooperative with assessment. He is joined by his [id number] and son at bedside who he consents to being present during our visit. Collectively they describe approximately 2 to 3 years of gradual increase in anxiety and paranoia but with particular worsening in the last couple of weeks with periods of an almost catatonic-like state. Prior to hospitalization paranoia had gotten to the point that he may have been walking around the home with a firearm. Today he describes "there has been some confusion" and he has noticed that he will have these vivid experiences of thinking for example that he was about to have multiple surgeries and recalls having been in a hospital and experienced his bladder exploding but then being told by providers and family that none of these things happen. He notes that this is very "puzzling" and he does not know what to make of his mind playing such extensive tricks on him. He confirms recent paranoia noting concerns about "targeting me yes". Currently he denies any thoughts of suicide nor homicide. He has had increased anxiety and worries about various things including recently that his Medicare card was lost, that he had incorrectly filled the car with diesel and about intruders in the home. He was able to tolerate a trip to [facility] on [facility] with his in December though per family did experience a lot of anxiety around the traveling there and back. His family is working on securing all the firearms in the home by finding them and then removing them. While talking to Renato he does have some word finding difficulty at times. He denies any recent new neurological symptoms or changes in movement, stiffness nor tremor nor handwriting. Family agrees they have not seen any of these motor symptoms. His sister has Parkinson's disease. Confirmed no personal or family history of primary psychotic disorders or late life psychiatric presentations. We discussed possibility that his symptoms could represent paranoia and fluctuations in alteration associated with Lewy body dementia. He is interested in geriatric inpatient psychiatry admission for further diagnostic clarification and medication management to help with the paranoia. Physical Exam Vital Signs (Past 24 Hours) Last Vital Signs Temp 36.6 C 03/03/25 07:02 Pulse 66 03/03/25 08:23 Resp 18 03/03/25 07:02 BP 113/68 03/03/25 08:23 Pulse Ox 95 03/03/25 07:02 O2 Del Method Room Air 03/03/25 07:02 Results & Data ([facility]) Laboratory Results Laboratory Results - last 24 hr 02/27/25 02/27/25 03/03/25 12:14 12:14 08:39 Sodium 139 Potassium 4.1 Chloride 105 Carbon Dioxide 28 Anion Gap 6 BUN 18 Creatinine 0.76 Est Cr Clr Drug Dosing 87.9 eGFR 95.50 BUN/Creatinine Ratio 23.7 H Glucose 217 H Estimat Average Glucose Pending Hemoglobin A1c Pending Calcium 8.9 Phosphorus 3.0 Albumin 3.6 Arsenic 3 Lead Pending <1.0 Mercury <4 Current Inpatient Medications Current Inpatient Medications: Current Inpatient Medications Atorvastatin Calcium (Atorvastatin 20 Mg Tab) 20 mg PO QPM ANTONIO Stop: 03/28/25 21:48 Last Admin: 03/02/25 21:45 Dose: 20 mg Bisacodyl (Bisacodyl 5 Mg Tabec) 5 mg PO HS ANTONIO Stop: 03/31/25 20:59 Last Admin: 03/02/25 21:45 Dose: 5 mg Enoxaparin Sodium (Enoxaparin Inj 40 Mg/0.4 Ml Syr) 40 mg SQ Q24H ANTONIO Stop: 03/30/25 07:59 Last Admin: 03/03/25 08:28 Dose: 40 mg Losartan Potassium (Losartan Potassium 50 Mg Tab) 100 mg PO QAM ANTONIO Stop: 03/29/25 08:59 Last Admin: 03/03/25 08:25 Dose: 100 mg Melatonin (Melatonin 3 Mg Tab) 6 mg PO HS PRN PRN Reason: Sleep Stop: 03/29/25 00:09 Last Admin: 03/02/25 21:44 Dose: 6 mg Metoprolol Succinate (Metoprolol Succ 50mg Ext Rel Tab) 50 mg PO QAM ANTONIO Stop: 03/29/25 08:59 Last Admin: 03/03/25 08:26 Dose: 50 mg Olanzapine (Olanzapine 5 Mg Tablet) 5 mg PO HS ANTONIO Stop: 03/29/25 20:59 Last Admin: 02/27/25 20:30 Dose: 5 mg Olanzapine (Olanzapine 2.5 Mg Tab) 2.5 mg PO Q8H PRN PRN Reason: Agitation Stop: 03/29/25 12:14 Last Admin: 02/28/25 06:49 Dose: 2.5 mg Polyethylene Glycol (Polyethylene (Miralax) 17 Gm Pack) 17 gm PO DAILY ANTONIO Stop: 03/31/25 08:59 Last Admin: 03/03/25 08:31 Dose: 17 gm Tamsulosin HCl (Tamsulosin Hcl 0.4 Mg Cap) 0.4 mg PO BID ANTONIO Stop: 03/28/25 21:48 Last Admin: 03/03/25 08:25 Dose: 0.4 mg
[2025-03-03 14:57] LABS: Hemoglobin A1C 5.7 % (4.5-5.6)
--- NOTE | 2025-03-04 10:00 | Hospitalist Progress Note ---
Date of Service March 04, 2025 Assessment & Plan (1) Hallucinations in several modalities at once: (2) Acute paranoia: Plan: Appreciate psychiatry consultation and recommendations. Continue quetiapine for now. Lewy body dementia remains a possibility although brain MRI scan was unremarkable. (3) Homicidal ideation: Plan: Appears to have resolved. One-on-one supervision discontinued today, March 04 (4) Suicidal ideation: Plan: Appears to have resolved. One-on-one supervision discontinued today, March 04 (5) BPH with obstruction/lower urinary tract symptoms: Plan: Torres catheter removed March 03. He remains on Flomax. He does have some dysuria but he is voiding spontaneously. Plan To be determined by psychiatry staff Admission and Anticipated Discharge Date Admission Date: February 28, 2025 Subjective Alert and oriented. No distress. He has a flat affect though. No apparent suicidal ideation. One-on-one supervision has been discontinued. It is conceivable that his statin therapy has contributed to his mental status changes. Atorvastatin has been discontinued. He remains on Seroquel per psychiatric recommendations. Lewy body dementia remains a possibility although brain MRI scan is negative. Torres catheter was removed yesterday, March 03, and he is voiding although he does have some dysuria. Review of Systems 2 Review of Systems: Unremarkable Physical Exam 2 Physical Exam: Normal Results & Data Results & Data Vital Signs (Past 12 Hours) Vital Signs Temp Pulse Resp BP BP Pulse Ox O2 Del Method 03/04/25 08:46 65 125/66 03/04/25 07:01 36.6 C 64 18 133/71 97 Room Air 03/03/25 23:30 36.8 C 55 L 16 115/64 98 Room Air Laboratory Results 02/26/25 13:46 03/03/25 08:39 PG Care Time/CCT Total # of Minutes Spent Total Time Spent with Patient: Total time spent is greater than 50% in coordination of care (as documented) at patient's floor/unit and/or counseling patient: Coding Level of Care Code 48692 SUB INP/OBS CARE 2/35MIN Diagnoses Hallucinations in several modalities at once R44.2 Acute paranoia F22 Homicidal ideation R45.850 Suicidal ideation R45.851 BPH with obstruction/lower urinary tract symptoms N40.1; N13.8
[2025-03-04 12:48] LABS: Influenza A virus by PCR Negative (Neg); Influenza B virus by PCR Negative (Neg); SARS CoV2 RNA(COVID-19) Ceph NEGATIVE (Negative)
--- NOTE | 2025-03-04 13:10 | Electrocardiogram Report ---
Test Reason : Blood Pressure : */* mmHG Vent. Rate : 60 BPM Atrial Rate : 60 BPM P-R Int : 144 ms QRS Dur : 156 ms QT Int : 464 ms P-R-T Axes : 43 5 106 degrees QTcB Int : 464 ms Normal sinus rhythm Left bundle branch block Abnormal ECG When compared with ECG of 26-Feb-2025 13:58, No significant change was found Confirmed by Reg Otto [id number] on 03/04/2025 1:10:16 PM Referred By: Eliseo Ordoñez Confirmed By: Reg Otto
[2025-03-05] MEDS: DOCUSATE SODIUM 100 MG CAP PO SCH (12:20)
--- NOTE | 2025-03-05 14:09 | Hospitalist Progress Note ---
Date of Service March 05, 2025 Assessment & Plan (1) Hallucinations in several modalities at once: Plan: Fortunately the repeat EKG reveals an acceptable QT interval. Seroquel replaces bedtime Zyprexa. Supportive care. (2) Acute paranoia: Plan: Appreciate psychiatry consultation and recommendations. Continue quetiapine for now. Lewy body dementia remains a possibility although brain MRI scan was unremarkable. (3) Homicidal ideation: Plan: Appears to have resolved. One-on-one supervision was discontinued on March 04. (4) Suicidal ideation: Plan: Appears to have resolved. One-on-one supervision was discontinued on March 04 (5) BPH with obstruction/lower urinary tract symptoms: Plan: Torres catheter removed March 03. He remains on Flomax. He does have some dysuria but he is voiding spontaneously. Plan He is medically stable for discharge to inpatient psych facility when arrangements are finalized Admission and Anticipated Discharge Date Admission Date: February 28, 2025 Subjective Stable overall. No new problems fortunately, the QT interval on his repeat EKG is normal. COVID swab is negative. Seroquel has been ordered which replaces Zyprexa at bedtime. The patient is constipated and he is now on Colace and MiraLAX twice daily. Psychiatry is searching for inpatient rehab facility. Review of Systems 2 Review of Systems: Constitutionalno fever or chills ENTno blurred vision, no double vision, no epistaxis, no sore throat Respiratoryno cough, no wheezing, no shortness of breath Cardiacno palpitations, no chest pain, no syncope Yovana nausea, vomiting, diarrhea, melena, hematochezia GUno urinary retention, no urinary incontinence, no dysuria, no hematuria Musculoskeletalno joint pain, no muscle tenderness Skinno bruising, no rashes, no pruritus Neurono isolated weakness, no paresthesia, no weakness Psychno depression, no anxiety Physical Exam 2 Physical Exam: General-alert and oriented x3, no fever, no chills HEENT-head atraumatic and normocephalic, pupils equal and reactive to light, extraocular muscles intact Neck-no lymphadenopathy or thyromegaly, trachea midline Chest-clear to auscultation. No rales, wheezing or rhonchi Cardiac-regular rate and rhythm, normal S1 and S2 Abdomen-normal bowel sounds, no hepatosplenomegaly Extremities-no cyanosis, clubbing, or edema Neuro-cranial nerves II through XII intact, motor and sensory function within normal limits, strength symmetrical, no focal deficits Psych-normal affect, normal mood Results & Data Results & Data Vital Signs (Past 12 Hours) Vital Signs Temp Pulse Resp BP Pulse Ox O2 Del Method 03/05/25 07:31 36.5 C 59 L 18 148/77 H 97 Room Air Laboratory Results 02/26/25 13:46 03/03/25 08:39 PG Care Time/CCT Total # of Minutes Spent Total Time Spent with Patient: Total time spent is greater than 50% in coordination of care (as documented) at patient's floor/unit and/or counseling patient: Coding Level of Care Code 99650 SUB INP/OBS CARE 2/35MIN Diagnoses Hallucinations in several modalities at once R44.2 Acute paranoia F22 Homicidal ideation R45.850 Suicidal ideation R45.851 BPH with obstruction/lower urinary tract symptoms N40.1; N13.8
[2025-03-05] MEDS: POLYETHYLENE (MIRALAX) 17 GM PACK PO SCH (20:23)
--- NOTE | 2025-03-06 10:52 | Hospitalist Progress Note ---
Date of Service March 06, 2025 Assessment & Plan (1) Hallucinations in several modalities at once: (2) Acute paranoia: (3) Homicidal ideation: (4) Suicidal ideation: (5) BPH with obstruction/lower urinary tract symptoms: Plan In summary this is a 74-year-old male who presents with acutely worsened severe paranoia associated with hallucinations, homicidal and suicidal ideation. #Severe paranoia with hallucinations // Suicidal and Homicidal ideation There is no acute medical condition that would explain the patient's worsening paranoia; the patient was recently started on Zoloft by an outpatient psychiatrist/SECURITY CLERK, which may have exacerbated the patient's symptoms; noted that the patient has been nonadherent with PPV therapy while sleeping, but laboratory assessment does not suggest there is significant acid/base derangement to cause his subacutely altered state Psychiatry consulted; anticipate referral to inpatient geriatric psychiatry - Heavy metal serology is unremarkable; serum copper remains pending - MRI brain without contrast was without evidence of pathology - Continue Seroquel HS - Hold olanzapine 5 mg p.o. at bedtime, per psychiatry recommendation - Continue olanzapine 2.5 mg p.o. every 8 hours as needed for breakthrough agit ation, paranoia Discontinue Zoloft #BPH with urinary retention Established condition in the outpatient setting; he has been continued on tamsulosin during this hospitalization and continues to have retention - Continue Flomax #Slow transit constipation Successful stool passage on 03/01 with interventions provided - Continue miralax 17 g p.o. daily - Continue bisacodyl 5 mg p.o. at bedtime The remainder the patient's chronic medical conditions are stable and do not require adjustment to their outpatient regimen at this time Admission and Anticipated Discharge Date Admission Date: February 28, 2025 Subjective Mr. Cabrera is a 74-year-old male whose active medical conditions include hyperlipidemia, benign prostatic hyperplasia with lower urinary tract symptoms, obstructive sleep apnea requiring CPAP therapy among other chronic medical conditions who presents to the [facility] due to acutely worsening paranoia with associated homicidal and suicidal ideation. No acute overnight events Review of Systems Review of Systems: Review of cardiovascular, pulmonary, gastrointestinal, genitourinary, neurolo gic, psychiatric systems was unremarkable except for pertinent positive and negative findings detailed above Physical Exam Physical Exam: General: Adult male in no acute distress Vital Signs: Reviewed HEENT: Moist mucous membranes Pulmonary: Symmetric chest wall excursion without restriction Cardiovascular: Regular rate and rhythm with right radial pulse 2+; no notable lower extremity edema Psychiatric: Alert and oriented to self, place, time; continues to experience visual hallucinations; condition unchanged from admission Results & Data Results & Data Vital Signs (Past 12 Hours) Vital Signs Temp Pulse Resp BP BP Pulse Ox O2 Del Method 03/06/25 07:11 36.7 C 68 18 144/76 H 95 Room Air 03/06/25 01:19 36.6 C 65 18 108/69 98 Room Air PG Care Time/CCT Total # of Minutes Spent Total Time Spent with Patient: Total time spent is greater than 50% in coordination of care (as documented) at patient's floor/unit and/or counseling patient: Coding Level of Care Code 75909 SUB INP/OBS CARE 05/04MIN Diagnoses Hallucinations in several modalities at once R44.2 Acute paranoia F22 Homicidal ideation R45.850 Suicidal ideation R45.851 BPH with obstruction/lower urinary tract symptoms N40.1; N13.8
--- NOTE | 2025-03-07 10:22 | Hospitalist Progress Note ---
Date of Service March 07, 2025 Assessment & Plan (1) Acute paranoia: (2) Hallucinations in several modalities at once: (3) Suicidal ideation: (4) BPH with obstruction/lower urinary tract symptoms: Plan This patient is a 74-year-old male with a history of BPH, HTN, BELLO on CPAP, HLD, GERD, LBBB, who presents with acutely worsened severe paranoia associated with hallucinations, homicidal and suicidal ideation. He has been having some abnormal thoughts for the last 2 years but worsened significantly in the last 2 weeks prior to admission. He was having visual hallucinations and possibly auditory hallucinations. He was started on Zoloft which potentially worsened his paranoia. #Severe paranoia with hallucinations/Suicidal and Homicidal ideation-There is no acute medical condition that would explain the patient's worsening paranoia. MRI of the brain without contrast negative for stroke or other abnormalities. While it is noted that it was done without contrast, an MRI of the brain with contrast would potentially be helpful, however he has no focal neurological deficits to suggest intracranial mass lesion. Alcohol level negative, urine drug screen negative, heavy metals all negative except lead level is pending. TSH is normal. He has no signs of infection or metabolic dysfunction. He did have some evidence of constipation and urinary retention. He is now moving his bowels regularly and Torres catheter has been removed-he is voiding completely. Appreciate psychiatry consultation. He did not respond well to olanzapine. Attempts were made at elopement in the middle of the night during this admission requiring 4 point restraints which are now off. Patient is now much improved after starting Seroquel. His home sertraline was discontinued. He is now off one-to-one -He has not had workup for thiamine or B12 deficiency, Lyme disease, or syphilis (RPR))-ordered all of these and these are pending. Will start oral thiamine in the morning in case of B1 deficiency -Follow-up on lead level when available-pending Psychiatry consulted; recommendation is for inpatient geriatric psychiatry -Continue Seroquel 12.5 mg p.o. twice daily and 50 mg p.o. at bedtime - Continue bowel regimen and monitor for urinary retention - Ordered CPAP for BELLO to improve sleep and oxygenation #BPH with urinary retention-established condition in the outpatient setting. Required straight cath and later Torres catheterization during this admission. The Torres catheter is now removed and he is voiding spontaneously. He had been constipated which is now improved - Continue Flomax 0.4 mg p.o. twice daily which is his home dose - Monitor for retention #Slow transit constipation-he is now moving his bowels regularly after taking laxatives - Continue miralax 17 g p.o. daily - Continue bisacodyl 5 mg p.o. at bedtime #HTN/HLD/chronic LBBB-no acute issues, BPs controlled. QTc normal on ECG - Continue home losartan, Toprol-XL - Okay to resume home atorvastatin-unclear why this was held #BELLO on CPAP - Ordered home CPAP #GERD-no acute issues - Resume home PPI-unclear why held DVT prophylaxis-Lovenox SQ Disposition-continued stay, medically stable for discharge, awaiting placement in geriatric psychiatric facility Admission and Anticipated Discharge Date Admission Date: February 28, 2025 Subjective Patient occasionally feels lightheaded and thinks it is from the Seroquel. Otherwise, he is off the one-to-one sitter, nursing reports no problems and he is doing very well. The patient seems oriented and with goal-directed conversation about being discharged to psychiatric facility. He is concerned that he does not have enough close to take with him that fit him as he has purposefully lost over 40 pounds with increasing exercise recently. He has not been using his CPAP as it was not ordered. He denies chest pains or shortness of breath. Denies nausea or vomiting. He is moving his bowels regularly-had a bowel movement today. He is making urine and his postvoid residual was normal at 22 mL. Physical Exam Constitutional: WD/WN, vitals as above Eyes: PERRL, conjunctivae normal, anicteric sclerae Respiratory: normal respiratory effort, lungs clear to auscultation Cardiovascular: RRR, no murmur, no edema Gastrointestinal (Abdomen): normal bowel sounds, soft, nontender, no hepatosplenomegaly Psychiatric: A+Ox3, euthymic affect Results & Data Results & Data Vital Signs (Past 12 Hours) Vital Signs Temp Pulse Resp BP BP Pulse Ox O2 Del Method 03/07/25 07:00 36.3 C L 64 18 112/60 98 Room Air 03/06/25 22:48 36.6 C 62 18 114/57 L 97 Room Air Laboratory Results No labs for review PG Care Time/CCT Total # of Minutes Spent Total Time Spent with Patient: Total time spent is greater than 50% in coordination of care (as documented) at patient's floor/unit and/or counseling patient: Coding Level of Care Code 03339 SUB INP/OBS CARE 2/35MIN Diagnoses Acute paranoia F22 Hallucinations in several modalities at once R44.2 Suicidal ideation R45.851 BPH with obstruction/lower urinary tract symptoms N40.1; N13.8
--- NOTE | 2025-03-07 16:01 | Psychiatric Progress Note ---
Date of Service March 07, 2025 Impression / Recommendations Impression Patient with late onset psychosis and no family history of mental illness. No history of substance use. 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 A: Pt presents improvement in alertness, mood, and paranoia. Concern for periods of alterations in consciousness and history of complex delusions. No recent visual hallucinations endorsed. Fair reality testing. Possible that urinary retention lead to atypical delirium that is now resolving but suspect LBD as cause. Medical workup to date has been non-revealing for any other acute medical causes to explain increased paranoia in recent weeks. Suspect likely lewy body dementia with increased psychiatric symptoms of paranoia and anxiety vs psychosis from atypical depression. is concerned given gradual increase in symptoms over the past year and potential harm he has placed himself in; currently unable to take him back home and would like to pursue [facility] inpatient referral which may assist with diagnostic clarification and medication management. Overall, I spent a total of 80 minutes with this case including review of chart records, review of labwork, review of EKG QTc, direct evaluation of the patient at bedside, counseling the patient, discussion of the patient with the hospitalist provider, discussion with the psychiatric liason during clinical rounds, review of collateral historian information from the family and documentation in the electronic health record. (1) Unspecified psychosis not due to a substance or known physiological condition: (2) Paranoia: (3) BELLO (obstructive sleep apnea): Plan 03/08/25: No current indication for bedside sitter, but would have low threshold if paranoia persists and endorsing SI Continue Quetiapine 50mg HS and 12.5mg BID prn for psychosis/paranoia/distress from hallucinations 03/01/2025: -1-on-1 prn at discretion of hospitalist, would continue for now given recent fluctuations in mood and paranoia it's possible his SI could return if he becomes distressed -COVID-test for [facility] psych bed search -Repeat EKG to check QTc, if this is <500ms then would: * Start Seroquel 50mg HS and 12.5mg BID prn for psychosis/paranoia/distress from hallucinations 02/28/25 Ativan 1mg IV (challenge test fro catatonia during staring event) conducted at 12:50pm. Result negative. Patient deeply asleep after Ativan. O2 =94 on room air Continue to search for neurological or other medical conditions for patient's presentation (atypical onset of psychosis) Hold Olanzapine 5mg qhs Continue Olanzapine 2.5mg PRN 02/27/25 Recommend olanzapine 5 mg p.o. nightly and 2.5 mg p.o. 3 times daily as needed for agitation. Avoid use of Haldol and other strong D 2 blockers until Lewy body dementia is ruled out due to concerns about higher morbidity and mortality. Avoid sedating medications like benzodiazepines and medications with high anticholinergic effect like hydroxyzine. Agree with discontinuation of Zoloft. Interval History Identifying Information STEVEN UMANZOR is a 74-year-old M who currently lives with his , has a history of hypertension, dyslipidemia, anxiety, and was admitted on 02/26/25 18:02 to the medical floor after presented to the ED with abnormal behavior and recent onset of paranoia. Chief Complaint Paranoia, alterations of conciousness Subjective Subjective Pt seen initially alone and then joins later. He reports being initially confused about why he was coming to the hospital. Thought he was here to have multiple surgeries but knows that doesn't make sense. He felt like the car ride here took multiple hours even though they live close by. Reports history of putting the wrong gasoline (Diesel fuel) into the car twice. Says he feels less confused now. Oriented to self, place, date, situation (partially). Reports he was started on sertraline by PCP for mostly anxiety and some depression; unclear if it has been helpful. Denies recent falls, however was dizzy when mowing the lawn on a summer day. Denies having diarrhea/constipation at home. Has some urinary retention at home and accounts it to an enlarged prostate-improved now. Reports initially seeing an image on a distributor cleaner but no one else could see it. Pt and 's collateral deny pt seeing any recent visual hallucinations. Reports sleeping well with quetiapine but feels drowsy during the day. Presents some paranoia regarding past delusions. Pt paranoia, forgetfulness started 4 years ago and gradually increased last 1 year. Both pt and deny recent starting spells. Conducted a short walk test for Parkinsonism and patient presented no notable tremor, slightly shorter gait, no notable rigidity, and was able to ambulate and get up/down a chair with a steady pace. Physical Exam Mental Examination Appearance: Well Groomed Eye Contact: Maintains Eye Contact Motor Behavior: Unremarkable Speech: Normal Mood: Calm Affect: Constricted Thought Process: Intact and Linear Thought Content: Intact Hallucinations: None Insight: Fair (to limited) Judgement: Fair (to limited) Vital Signs (Past 24 Hours) Last Vital Signs Temp 36.5 C 03/07/25 15:16 Pulse 59 L 03/07/25 15:16 Resp 18 03/07/25 15:16 BP 103/61 03/07/25 15:16 Pulse Ox 96 03/07/25 15:16 O2 Del Method Room Air 03/07/25 15:16 Results & Data ([facility]) Laboratory Results Laboratory Results - last 24 hr 03/07/25 15:26 Whole Bld Vitamin B1 Pending Treponema pallidum Ab Pending Current Inpatient Medications Current Inpatient Medications: Current Inpatient Medications Atorvastatin Calcium (Atorvastatin 20 Mg Tab) 20 mg PO QAM ANTONIO Stop: 04/07/25 08:59 Docusate Sodium (Docusate Sodium 100 Mg Cap) 100 mg PO BID ANTONIO Stop: 04/04/25 11:54 Last Admin: 03/07/25 08:25 Dose: 100 mg Enoxaparin Sodium (Enoxaparin Inj 40 Mg/0.4 Ml Syr) 40 mg SQ Q24H ANTONIO Stop: 03/30/25 07:59 Last Admin: 03/07/25 07:40 Dose: 40 mg Losartan Potassium (Losartan Potassium 50 Mg Tab) 100 mg PO QAM ANTONIO Stop: 03/29/25 08:59 Last Admin: 03/07/25 08:25 Dose: 100 mg Melatonin (Melatonin 3 Mg Tab) 6 mg PO HS PRN PRN Reason: Sleep Stop: 03/29/25 00:09 Last Admin: 03/05/25 20:20 Dose: 3 mg Metoprolol Succinate (Metoprolol Succ 50mg Ext Rel Tab) 50 mg PO QAM [facility] Stop: 03/29/25 08:59 Last Admin: 03/07/25 08:24 Dose: 50 mg Olanzapine (Olanzapine 2.5 Mg Tab) 2.5 mg PO Q8H PRN PRN Reason: Agitation Stop: 03/29/25 12:14 Last Admin: 02/28/25 06:49 Dose: 2.5 mg Pantoprazole Sodium (Pantoprazole 40 Mg Tab) 40 mg PO QAM ANTONIO Stop: 04/07/25 08:59 Polyethylene Glycol (Polyethylene (Miralax) 17 Gm Pack) 17 gm PO BID ANTONIO Stop: 04/04/25 20:59 Last Admin: 03/07/25 07:40 Dose: 17 gm Quetiapine Fumarate (Quetiapine Fumarate 25 Mg Tablet) 12.5 mg PO BID@0700,1700 ANTONIO Stop: 04/04/25 16:59 Last Admin: 03/07/25 07:39 Dose: 12.5 mg Quetiapine Fumarate (Quetiapine Fumarate 25 Mg Tablet) 50 mg PO HS ANTONIO Stop: 04/04/25 20:59 Last Admin: 03/06/25 20:12 Dose: 50 mg Tamsulosin HCl (Tamsulosin Hcl 0.4 Mg Cap) 0.4 mg PO BID ANTONIO Stop: 03/28/25 21:48 Last Admin: 03/07/25 08:25 Dose: 0.4 mg Thiamine HCl (Thiamine Hcl 100 Mg Tab) 200 mg PO QAM ANTONIO Stop: 04/07/25 08:59
[2025-03-08] MEDS: THIAMINE HCL 100 MG TAB PO SCH (08:47)
[2025-03-08] MEDS: ATORVASTATIN 20 MG TAB PO SCH (08:47)
--- NOTE | 2025-03-08 13:49 | Hospitalist Progress Note ---
Date of Service March 08, 2025 Assessment & Plan (1) Hallucinations in several modalities at once: Plan: Fortunately the repeat EKG reveals an acceptable QT interval. Seroquel replaces bedtime Zyprexa. Supportive care. (2) Acute paranoia: Plan: Appreciate psychiatry consultation and recommendations. Continue quetiapine for now. Lewy body dementia remains a possibility although brain MRI scan was unremarkable. (3) Homicidal ideation: Plan: Appears to have resolved. One-on-one supervision was discontinued on March 04. (4) Suicidal ideation: Plan: Appears to have resolved. One-on-one supervision was discontinued on March 04 (5) BPH with obstruction/lower urinary tract symptoms: Plan: Torres catheter removed March 03. He remains on Flomax. He does have some dysuria but he is voiding spontaneously. Plan He is medically stable for discharge to inpatient psych facility when arrangements are finalized Admission and Anticipated Discharge Date Admission Date: February 28, 2025 Subjective Alert and oriented. No new problems. I attempted to call his at 1:45 PM but there was no answer. Review of Systems 2 Review of Systems: Constitutionalno fever or chills ENTno blurred vision, no double vision, no epistaxis, no sore throat Respiratoryno cough, no wheezing, no shortness of breath Cardiacno palpitations, no chest pain, no syncope Yovana nausea, vomiting, diarrhea, melena, hematochezia GUno urinary retention, no urinary incontinence, no dysuria, no hematuria Musculoskeletalno joint pain, no muscle tenderness Skinno bruising, no rashes, no pruritus Neurono isolated weakness, no paresthesia, no weakness Psychno depression, no anxiety Physical Exam 2 Physical Exam: General-alert and oriented x3, no fever, no chills HEENT-head atraumatic and normocephalic, pupils equal and reactive to light, extraocular muscles intact Neck-no lymphadenopathy or thyromegaly, trachea midline Chest-clear to auscultation. No rales, wheezing or rhonchi Cardiac-regular rate and rhythm, normal S1 and S2 Abdomen-normal bowel sounds, no hepatosplenomegaly Extremities-no cyanosis, clubbing, or edema Neuro-cranial nerves II through XII intact, motor and sensory function within normal limits, strength symmetrical, no focal deficits Psych-normal affect, normal mood Results & Data Results & Data Vital Signs (Past 12 Hours) Vital Signs Temp Pulse Resp BP BP Pulse Ox O2 Del Method 03/08/25 08:44 73 104/64 03/08/25 07:00 36.7 C 65 16 115/70 95 Room Air Laboratory Results 02/26/25 13:46 03/03/25 08:39 PG Care Time/CCT Total # of Minutes Spent Total Time Spent with Patient: Total time spent is greater than 50% in coordination of care (as documented) at patient's floor/unit and/or counseling patient: Coding Level of Care Code 57185 SUB INP/OBS CARE 2/35MIN Diagnoses Hallucinations in several modalities at once R44.2 Acute paranoia F22 Homicidal ideation R45.850 Suicidal ideation R45.851 BPH with obstruction/lower urinary tract symptoms N40.1; N13.8
--- NOTE | 2025-03-09 15:14 | Hospitalist Progress Note ---
Date of Service March 09, 2025 Assessment & Plan (1) Hallucinations in several modalities at once: Plan: Fortunately the repeat EKG reveals an acceptable QT interval. Seroquel replaced bedtime Zyprexa. Supportive care. (2) Acute paranoia: Plan: Appreciate psychiatry consultation and recommendations. Continue quetiapine for now. Lewy body dementia remains a possibility although brain MRI scan was unremarkable. He can seek neurology opinion as outpatient (3) Homicidal ideation: Plan: Appears to have resolved. One-on-one supervision was discontinued on March 04. (4) Suicidal ideation: Plan: Appears to have resolved. One-on-one supervision was discontinued on March 04 (5) BPH with obstruction/lower urinary tract symptoms: Plan: Torres catheter removed March 03. He remains on Flomax. He transiently had some dysuria but this has resolved. Plan He is medically stable for discharge to inpatient psych facility when arrangements are finalized. Hopefully within the next day or 2 Admission and Anticipated Discharge Date Admission Date: February 28, 2025 Subjective Alert and oriented. No new problems. The patient states he is now having regular bowel movements while on Colace and MiraLAX. Inpatient psychiatric placement remains pending Review of Systems 2 Review of Systems: Constitutionalno fever or chills ENTno blurred vision, no double vision, no epistaxis, no sore throat Respiratoryno cough, no wheezing, no shortness of breath Cardiacno palpitations, no chest pain, no syncope Yovana nausea, vomiting, diarrhea, melena, hematochezia GUno urinary retention, no urinary incontinence, no dysuria, no hematuria Musculoskeletalno joint pain, no muscle tenderness Skinno bruising, no rashes, no pruritus Neurono isolated weakness, no paresthesia, no weakness Psychno depression, no anxiety Physical Exam 2 Physical Exam: General-alert and oriented x3, no fever, no chills HEENT-head atraumatic and normocephalic, pupils equal and reactive to light, extraocular muscles intact Neck-no lymphadenopathy or thyromegaly, trachea midline Chest-clear to auscultation. No rales, wheezing or rhonchi Cardiac-regular rate and rhythm, normal S1 and S2 Abdomen-normal bowel sounds, no hepatosplenomegaly Extremities-no cyanosis, clubbing, or edema Neuro-cranial nerves II through XII intact, motor and sensory function within normal limits, strength symmetrical, no focal deficits Psych-normal affect, normal mood Results & Data Results & Data Vital Signs (Past 12 Hours) Vital Signs Temp Pulse Resp BP BP Pulse Ox O2 Del Method 03/09/25 14:57 36.5 C 61 16 96/58 L 98 Room Air 03/09/25 09:04 61 119/70 03/09/25 07:13 36.6 C 62 16 114/67 98 Room Air Laboratory Results 02/26/25 13:46 03/03/25 08:39 PG Care Time/CCT Total # of Minutes Spent Total Time Spent with Patient: Total time spent is greater than 50% in coordination of care (as documented) at patient's floor/unit and/or counseling patient: Coding Level of Care Code 46576 SUB INP/OBS CARE 2/35MIN Diagnoses Hallucinations in several modalities at once R44.2 Acute paranoia F22 Homicidal ideation R45.850 Suicidal ideation R45.851 BPH with obstruction/lower urinary tract symptoms N40.1; N13.8
[2025-03-09 23:06] VITALS: TEMP 97.3; O2SAT 97
[2025-03-10 07:19] VITALS: BP 119/77; PULSE 60; RESP 16
--- NOTE | 2025-03-10 10:34 | Hospitalist Progress Note ---
Date of Service March 10, 2025 Assessment & Plan (1) Hallucinations in several modalities at once: Plan: Fortunately the repeat EKG reveals an acceptable QT interval. Seroquel replaced bedtime Zyprexa. Supportive care. (2) Acute paranoia: Plan: Appreciate psychiatry consultation and recommendations. Continue quetiapine for now. Lewy body dementia remains a possibility although brain MRI scan was unremarkable. He can seek neurology opinion as outpatient (3) Homicidal ideation: Plan: Appears to have resolved. One-on-one supervision was discontinued on March 04. (4) Suicidal ideation: Plan: Appears to have resolved. One-on-one supervision was discontinued on March 04 (5) BPH with obstruction/lower urinary tract symptoms: Plan: Torres catheter removed March 03. He remains on Flomax. He transiently had some dysuria but this has resolved. Plan He is medically stable for discharge to inpatient psych facility when ar rangements are finalized. Hopefully within the next day or 2 Update discharge home per psychiatry with close follow-up with PCP and outpatient referral to follow-up with psychiatry andNeurology Admission and Anticipated Discharge Date Admission Date: February 28, 2025 Subjective He is doing very well sitting up in bed denies any symptoms or complaints. In fairly good spirits. Really wants to go home Maykel Veloz With psychiatry team reached out to me told me Dr. Fierro Has cleared patient for discharge home. wanted to hold off on discharge over the weekend to see if a bed at a psych facility would become available however they are all still full. Psychiatry team comfortable with discharging patient home and Maykel tells me they have already arranged follow-up in a few days with PCP who will arrange further follow-up with neurology and other subspecial ists. He is just asking for prescription to be written for Seroquel for a month Review of Systems Review of Systems: Constitutionalno fever or chills ENTno blurred vision, no double vision, no epistaxis, no sore throat Respiratoryno cough, no wheezing, no shortness of breath Cardiacno palpitations, no chest pain, no syncope Yovana nausea, vomiting, diarrhea, melena, hematochezia GUno urinary retention, no urinary incontinence, no dysuria, no hematuria Musculoskeletalno joint pain, no muscle tenderness Skinno bruising, no rashes, no pruritus Neurono isolated weakness, no paresthesia, no weakness Psychno depression, no anxiety Physical Exam Physical Exam: General-alert and oriented x3, no fever, no chills HEENT-head atraumatic and normocephalic, pupils equal and reactive to light, extraocular muscles intact Neck-no lymphadenopathy or thyromegaly, trachea midline Chest-clear to auscultation. No rales, wheezing or rhonchi Cardiac-regular rate and rhythm, normal S1 and S2 Abdomen-normal bowel sounds, no hepatosplenomegaly Extremities-no cyanosis, clubbing, or edema Neuro-cranial nerves II through XII intact, motor and sensory function within normal limits, strength symmetrical, no focal deficits Psych-normal affect, normal mood Constitutional: WD/WN, vitals as above Eyes: PERRL, conjunctivae normal, anicteric sclerae Respiratory: normal respiratory effort, lungs clear to auscultation Cardiovascular: RRR, no murmur, no edema Gastrointestinal (Abdomen): normal bowel sounds, soft, nontender, no hepatosplenomegaly Psychiatric: A+Ox3, euthymic affect Results & Data Results & Data Vital Signs (Past 12 Hours) Vital Signs Temp Pulse Resp BP Pulse Ox O2 Del Method 03/10/25 07:19 36.3 C L 60 16 119/77 97 Room Air 03/09/25 23:00 36.3 C L 55 L 18 110/61 97 Room Air PG Care Time/CCT Total # of Minutes Spent Total Time Spent with Patient: Total time spent is greater than 50% in coordination of care (as documented) at patient's floor/unit and/or counseling patient: Coding Level of Care Code 57644 SUB INP/OBS CARE 2/35MIN Diagnoses Hallucinations in several modalities at once R44.2 Acute paranoia F22 Homicidal ideation R45.850 Suicidal ideation R45.851 BPH with obstruction/lower urinary tract symptoms N40.1; N13.8
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
== END 2025-03-10 13:59 | disposition home or self-care (01) | DRG 885 ==
LOC: ED 12:27 → 3E 12:27 → SUATTDRO 02-28 07:44